=== PATIENT | female | born 1945 | race Caucasian/White ===

== ENCOUNTER 2018-03-14 20:14 | Inpatient (IN) ==
[2018-03-15] MEDS ORDERED: Ondansetron 4 MG/2 ML VIAL IVP PRN (02:01)
[2018-03-15] MEDS ORDERED: D5% in Water 1,000 ML IVC PRN (02:03)
[2018-03-15] MEDS ORDERED: *HR* OxyCODONE Immed Rel 5 MG TABLET PO PRN (02:03)
[2018-03-15] MEDS ORDERED: *HR* Dextrose 50 % in Water (Syg) 50 ML SYRINGE IVP PRN (02:03)
[2018-03-15] MEDS ORDERED: Dextrose Gel 15 GM/37.5 ML TUBE PO PRN ×2 (02:03)
[2018-03-15] MEDS: 0.9 % Sodium Chloride 1,000 ML IVC SCH ×2 (02:49→15:33)
[2018-03-15] MEDS: Piperacillin/Tazobactam 3.375 GM in 0.9 % Sodium Chloride Mini Bag 100 ML IVPB SCH ×4 (02:50→23:51)
[2018-03-15] MEDS: Insulin LISPRO 300 UNITS/3 ML VIAL SQ SCH ×3 (05:48→19:25)
[2018-03-15] MEDS ORDERED: *HR* Metoprolol 5 MG/5 ML VIAL IVP PRN (06:32)
[2018-03-15] MEDS ORDERED: Naloxone 0.4 MG/ML INJ IVP PRN (06:32)
[2018-03-15 07:17] LABS: Basophils % 0.2 %; Eosinophils # 0.1 K/mcL (0.0-0.6); Eosinophils % 1.4 %; Hematocrit 32.3 % (35.3-44.9); Hemoglobin 10.6 g/dL (11.5-15.4); Immature Granulocytes % 0.7 % (0-4); Lymphocytes # 2.5 K/mcL (0.6-4.6); Lymphocytes % 27.9 %; Mean Corpuscular HGB Conc 32.8 g/dL (31.6-35.5); Mean Corpuscular Hemoglobin 32.3 pg (28.0-33.3); Mean Corpuscular Volume 98.5 fL (83.0-100.0); Mean Platelet Volume 11.9 fL (9.4-12.4); Monocytes # 0.6 K/mcL (0.0-1.3); Monocytes % 6.7 %; Neutrophils # 5.6 K/mcL (1.6-8.9); Platelet Count 161 K/mcL (140-400); Red Blood Count 3.28 M/mcL (3.82-4.97); Red Cell Distribution Width 15.9 % (11.5-14.5); Segmented Neutrophils % 63.1 %
[2018-03-15] MEDS ORDERED: Piperacillin/Tazobactam 3.375 GM in 0.9 % Sodium Chloride Mini Bag 100 ML IVPB SCH (08:00)
--- NOTE | 2018-03-15 08:39 | General Surg History&Physical ---
<Dayton Albright - Last Filed: 03/15/18 09:45> Date of Encounter: 03/15/18 Time of Encounter: 08:00 Assessment and Plan (1) Appendicitis, acute Current Visit: Yes Status: Acute Assessment: Appendicitis. Patient presents with RLQ abdominal pain that increases with movement and pressure. Abdominal/Pelvic CT w/o contrast show inflammatory changes around appendix without perforation. Patient reports fever and night sweats since onset of RLQ abdominal pain. Appendectomy in afternoon 03/15. Patient consent obtained. NPO Zoffran prn for nausea IV piperacillin tazobactam IVF Oxycodone and naloxone PRN for pain The assessment and plan as outlined above was discussed with the patient and/or family members who expressed understanding and agreement. All questions were answered. Qualifiers: Qualified Code(s): K35.80 - Unspecified acute appendicitis (2) Diabetes Current Visit: Yes Status: Acute Patient normally on insulin gargine 100U. 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 Qualifiers: Arrhythmia type: unspecified cardiac arrhythmia Qualified Code(s): I49.9 - Cardiac arrhythmia, unspecified (4) Hypertension Current Visit: Yes Status: Acute Metoprolol PRN if severe acute hypertension 180/110 Qualifiers: Qualified Code(s): I10 - Essential (primary) hypertension History of Present Illness Chief complaint: Right lower quadrant abdominal pain since Wednesday HPI: Ms. Hernández is a 73 year old female presenting with lower quadrant abdominal pain , constipation, and nausea starting Wednesday. Increased with movement and pressure from wearing pants. Since Wednesday she has had fever and night sweats. She went to [facility] ER last night and was given ceftriaxone. CT abdomen and pelvis without contrast was done showing periappendiceal inflammation and lymph nodes consistent with acute appendicitis , [place] radiology agree with findings. She was transferred to [place] for appendectomy. Pain was rated a 10 out of 10 on admission and currently her pain is an 8 out of 10. Her last meal was yesterday afternoon. She has not had a bowel movement for several days. She has had a cholecystectomy. Past Med Surg Social Fam HX - Past Medical History Medical history: diabetes (unknown type), hyperlipidemia, hypertension, other ( cardiac arrthymia of unknown type, moribid obesity) Psychiatric history: no psych history - Past Surgical History Surgical History: breast surgery, cholecystectomy (unknown date), knee replacement (unknown date), sinus surgery, vascular surgery (cardiac cath unknown date) Additional surgical history: left foot surgery years ago - Social History Smoking Status: Current some day smoker (3-4 cigarretes per day for 10 years) Packs per day: less than half Smokeless Tobacco Status: No Alcohol use: none Drug use: none Occupational status: retired - Family History Sister Living Status: Hx Family Cancer: Yes Father Living Status: Cause of : Cardivascular or unknown type. Hx Family Cardiac Disorders: Yes Medications and Allergies Insulin Glargine,Hum.rec.anlog [Hong Joel U-100] 30 unit SQ DAILY [History] Tramadol HCl [Ultram] 50 mg PO TID PRN 03/15/18 [History] 3 Allergy/AdvReac Type Severity Reaction Status Date / Time aspirin AdvReac Vomiting Verified 03/15/18 09:06 ibuprofen [From Motrin] AdvReac Vomiting Verified 03/15/18 09:06 Review of Systems All systems PM: The remainder of the systems were reviewed and are negative - Constitutional as per HPI - Cardiovascular irregular heart rhythm - Gastrointestinal as per HPI - Genitourinary Genitourinary: urinary incontinence General Surgery Exam Initial Vital Signs Temp Pulse Resp BP Pulse Ox 98.1 F 58 16 119/69 96 03/15/18 01:11 03/15/18 01:11 03/15/18 01:11 03/15/18 01:11 03/15/18 01:11 - General physical appearance well developed, well nourished, no distress, moderate pain - Eyes normal ocular movement - Respiratory normal respiratory effort, clear to auscultation - Cardiovascular Cardiovascular exam: Present: RRR, regular rhythm, no murmurs/rubs/gallops - Abdomen Abdomen general surgery: Present: soft, non tender, guarding Abdominal Tenderness: Present: RUQ, RLQ (pain most pronounced in RLQ) - Neurologic Present: CN 2-12 grossly intact - Psychiatric Psychiatric general surgery: Present: A&Ox3, appropriate, oriented to place, speech is normal, memory intact Results - Labs 03/15/18 06:49 Abnormal lab results RBC 3.28 M/mcL (3.82-4.97) L 03/15/18 06:49 Hgb 10.6 g/dL (11.5-15.4) L 03/15/18 06:49 Hct 32.3 % (35.3-44.9) L 03/15/18 06:49 RDW 15.9 % (11.5-14.5) H 03/15/18 06:49 All other labs normal. <Kerry Campa - Last Filed: 03/15/18 16:59> Date of Encounter: 03/15/18 Assessment and Plan (1) Appendicitis, acute Current Visit: Yes Status: Acute The assessment and plan as outlined above was discussed with the patient and/or family members who expressed understanding and agreement. All questions were answered. discussed CT results with patient as well as PE findings, labs she has an acute appendicitis, unsure if distal tip findings are inflammatory or tumor in nature will plan laparoscopic appendectomy, possible open, possible cholangiograms, risks and benefits discussed and she wishes to proceed npo ivf hydration prn pain control Qualifiers: Acute appendicitis type: with localized peritonitis Qualified Code(s): K35.3 - Acute appendicitis with localized peritonitis (2) Diabetes Current Visit: Yes Status: Acute The assessment and plan as outlined above was discussed with the patient and/or family members who expressed understanding and agreement. All questions were answered. 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 All questions were answered. Qualifiers: Qualified Code(s): I10 - Essential (primary) hypertension History of Present Illness HPI: Ms. Hernández is a 73 year old female who two days ago started having RLQ pain which she describes as sharp and constant. Throughout the day the pain became worse and she presented to an OSH ED. The pain does not radiate. She has no diarrhea. No fever or chills. She has been having night sweats. Denies dysuria. She has urinary incontinence at baseline. She presented a CT scan abd/pelvis which showed appendicitis with 12 mm dilated appendix and 2.7 x 3.4 cm nodular density at the tip. Past Med Surg Social Fam HX - Past Medical History Source: patient Medical history: diabetes, hyperlipidemia, hypertension, other (cardiac arrthymia of unknown type, moribid obesity, overactive bladder) Review of Systems All systems PM: The remainder of the systems were reviewed and are negative General Surgery Exam Initial Vital Signs Temp Pulse Resp BP Pulse Ox 98.1 F 58 16 119/69 96 03/15/18 01:11 03/15/18 01:11 03/15/18 01:11 03/15/18 01:11 03/15/18 01:11 - General physical appearance well developed, well nourished, no distress, obese - Eyes PERRL, normal ocular movement - ENT normal mucosa, normocephalic - Neck trachea midline - Respiratory normal expansion, clear to auscultation - Cardiovascular Cardiovascular exam: Present: RRR, no murmurs/rubs/gallops - Abdomen Abdomen general surgery: Present: bowel sounds present, soft, tender. Absent: distended, guarding, rebound Abdominal Tenderness: Present: RLQ - Integumentary Integumentary general surgery: Present: warm and dry, no abnormal pigmentation - Neurologic Present: CN 2-12 grossly intact - Musculoskeletal Present: normal posture - Psychiatric Psychiatric general surgery: Present: A&Ox3, speech is normal Results - Labs 03/15/18 06:49 Abnormal lab results RBC 3.28 M/mcL (3.82-4.97) L 03/15/18 06:49 Hgb 10.6 g/dL (11.5-15.4) L 03/15/18 06:49 Hct 32.3 % (35.3-44.9) L 03/15/18 06:49 RDW 15.9 % (11.5-14.5) H 03/15/18 06:49 POC Glucose 118 mg/dL (70-99) H 07/10/18 11:17 All other labs normal. - Imaging CT scan - abdomen: report reviewed, image reviewed CT scan - pelvis: report reviewed, image reviewed - Attending Attestation I examined this patient and my medical decision-making was reviewed with the Resident Physician. I agree with the documented findings, disposition and treatment plan as described except to the extent set forth below.
[2018-03-15] MEDS ORDERED: Acetaminophen 325 MG TABLET PO PRN (14:34)
--- NOTE | 2018-03-15 16:59 | Anesthesia Evaluation PreOp ---
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: Denies Any Significant HX Other Medical History: Diabetes Type II Anesthesia History: No Prior Anesthetic Complications, Past Anesthesia (breast, adrian, knee replacement, L foot) Alcohol Use: none Drug use: none Medications and Allergies Insulin Glargine,Hum.rec.anlog [Basaglar Kwikpen U-100] 30 unit SQ DAILY [History] Tramadol HCl [Ultram] 50 mg PO TID PRN 03/15/18 [History] 3 Allergy/AdvReac Type Severity Reaction Status Date / Time aspirin AdvReac Vomiting Verified 03/15/18 09:06 ibuprofen [From Motrin] AdvReac Vomiting Verified 03/15/18 09:06 - Meds/Allergy Pre-op Review Medications Reviewed: Yes Allergies Reviewed: Yes Beta Blockers on Current Med List: Yes (prn) Anesthesia Results - Labs 03/15/18 06:49 Laboratory Tests 12/31/17 03/15/18 11:30 11:17 Sodium 134 L Potassium 4.2 Chloride 100 Carbon Dioxide 29 BUN 11 Creatinine 0.89 Glucose 234 H POC Glucose 118 H - Imaging EKG: pending Anesthesia Exam Vital Signs/O2 Sat, Most Current Temp Pulse Resp BP Pulse Ox 99.8 F H 58 15 106/65 95 03/15/18 14:32 03/15/18 14:32 03/15/18 14:32 03/15/18 14:32 03/15/18 14:32 Height: 1.7m Weight: 100kg NPO (# of Hours): >8 - HEENT Pupil (Motor): Pupils equal, EOMI Mallampati: II Oral Opening: Greater than 3 - DISPLAY AND BANNER DESIGNER LOC: Oriented DISPLAY AND BANNER DESIGNER Motor: Normal RUE, Normal LUE, Normal RLE, Normal LLE, Normal Face DISPLAY AND BANNER DESIGNER Sensory: Normal: RUE, LUE, RLE, LLE, Face - Cardiac Rhythm: Regular - Pulmonary Breath Sounds: bilateral Clear Anesthesia Assess/Plan ASA Score: 3 Modified Culver Scale for Level of Consciousness: Cooperative, oriented, and tranquil Anesthetic Plan: General Monitoring Plan: Standard Monitors Recovery Plan: PACU
[2018-03-15] MEDS ORDERED: *HR* Propofol 200 MG/20 ML VIAL IVP ONE (17:22)
[2018-03-15] MEDS ORDERED: Dexamethasone 4 MG/ML VIAL ONE (17:22)
[2018-03-15] MEDS ORDERED: *HR* Rocuronium Bromide 50 MG/5 ML VIAL ONE (17:22)
[2018-03-15] MEDS ORDERED: *HR* FentaNYL (PF) 100 MCG/2 ML VIAL ONE ×2 (17:22→18:15)
[2018-03-15] MEDS ORDERED: Lidocaine -MPF 2% 2 ML VIAL ONE (17:22)
[2018-03-15] MEDS ORDERED: Lidocaine -MPF 4% 5 ML AMPUL ONE (17:22)
[2018-03-15] MEDS ORDERED: *HR* Midazolam HCl 2 MG/2 ML VIAL ONE (17:22)
[2018-03-15] MEDS ORDERED: Ondansetron 4 MG/2 ML VIAL ONE (17:22)
[2018-03-15] MEDS ORDERED: Acetaminophen IV 1,000 MG/100 ML INFUS..BTL ONE (17:27)
[2018-03-15] MEDS ORDERED: *HR* Morphine 2 MG/ML SYRINGE IVP PRN (18:13)
[2018-03-15] MEDS ORDERED: Dexamethasone 4 MG/ML VIAL IVP ONE (18:13)
[2018-03-15] MEDS ORDERED: Ondansetron 4 MG/2 ML VIAL IVP ONE (18:13)
[2018-03-15] MEDS ORDERED: *HR* Labetalol 20 MG/4 ML SYRINGE IVP PRN (18:13)
[2018-03-15] MEDS ORDERED: *HR* Succinylcholine 200 MG/10 ML VIAL IVP ONE (18:15)
[2018-03-15] MEDS ORDERED: *HR* Morphine 10 MG/ML VIAL ONE (18:43)
[2018-03-15] MEDS ORDERED: Ketorolac 30 MG/ML VIAL ONE (18:54)
--- NOTE | 2018-03-15 19:26 | Operative Note ---
Date of procedure: 03/15/18 Pre-op diagnosis: acute appendicitis Post-op diagnosis: other (acute perforated appendicitis) Procedure: Laparoscopic converted to open appendectomy Complications: none immediate Anesthesia: GETA, local Local Anesthetics: 0.5% Sensorcaine HCL SubQ (cc) Surgeon: Kerry Campa Was there an nursing assistants teacher present: Yes Grounds Crew Supervisor: Alexandria Stewart Estimated blood loss (cc): 5 Specimen: appendix Condition: stable Disposition: PACU Procedure in Detail: Patient was brought into the operating suite and placed supine on the operating table. Sign in was performed and everyone was in agreement. Anesthesia was induced and patient was endotracheally intubated by anesthesia without incident. Garrett catheter was placed by circulating nurse. The abdomen was prepped and draped in the usual sterile fashion. Timeout was performed again everyone was in agreement. An incision through the skin to the subcutaneous tissue above the umbilicus was made with an 11 blade. Towel clamps are placed on either side of the fascia for retraction. A Veress needle was placed through this incision and a water drop test confirmed placement and the abdomen was insufflated. We enter the abdomen with a 5 mm 30 degree laparoscope on a 5 mm XL trocar. The area under entry was visualized and there was no apparent bowel injury and no bleeding. A suprapubic 5 mm port was placed under direct visualization after first incising the skin with an 11 blade. The laparoscope was placed this port and the supraumbilical port was exchanged for a 12 mm port. The last 5 mm port was placed in the left lateral abdominal wall under direct visualization after first incising the skin with an 11 blade. The patient was placed in reverse Trendelenburg left side down position. The cecum and terminal ileum were located. The appendix was located which was densely adherent to the right lateral sidewall and with gentle blunt dissection using the laparoscopic DeBakey the perforated appendicitis abscess cavity was entered and pus spilled within the right lower quadrant. This was suctioned from the abdomen and the area was irrigated with sterile saline. Mobilization of the appendix from the terminal ileum and the cecum was extremely difficult. The decision to open was made and all ports were removed from the abdomen. A midline incision through the skin and the subcutaneous tissue starting at the supraumbilical incision was made with a 15 blade. We dissected through the subcutaneous tissue to the anterior abdominal wall linea alba fascia with the Bovie. Kocur's were placed in either side of the fascia for retraction. The abdomen was entered with the Bovie. Again the terminal ileum and cecum was identified. The appendix was located and using gentle blunt dissection elevated off the peritoneum. The base of the appendix was located and using a hemostat dissection was carried out between the base of the appendix and the mesoappendix. Using the laparoscopic Flex ex ETS stapler using a white load the appendix was transected off the base of the cecum. Using the same stapler and again another white load the mesoappendix was ligated and transected. The abdomen was copiously irrigated with sterile saline. The staple lines were evaluated they were intact and there was no obvious bleeding. A 19-Anguillan Shaun drain was placed in the right lower quadrant along the lateral aspect of the cecum through the abdominal wall, which was secured to the abdominal wall with a 2-0 silk stitch. Kocur's are placed another side of the fascia for retraction. The fascia was closed with 2 separate #1 non-looped PDS running stitches. The subcutaneous tissue was copiously irrigated with sterile saline. The subcutaneous tissue was reapproximated 3-0 Vicryl interrupted stitches. The skin was closed with bj. Quarter inch iodoform packing was packed into an area of the midline wound. 4 x 4 gauze and Medipore tape were applied as a dressing. A drain sponge was placed at the Shaun drain site. The two 5 mm port sites were closed at the skin with 4-0 Monocryl interrupted subcuticular stitches. Steri-Strips are applied to this wound. All lap and instrument counts were correct at the end of the case. The patient tolerated the procedure well. She was taken to PACU in stable condition after being awoken by anesthesia and extubated in the OR.
--- NOTE | 2018-03-15 19:53 | Anesthesia Evaluation Post Op ---
Date of Encounter: 03/15/18 Time of Encounter: 19:50 - Vital Signs Vital Signs: vss - Lungs Lungs: Rhonchi - Airway Airway: Non-obstructed - Mental Status Mental Status: Asleep with brisk response to light stimulation - Pain Pain Scale used: Melton-Sakshi (Faces) (not awake) - Nausea Vomiting Nausea Vomiting: Not Present - Hydration Hydration: Ice chips - Discharge PostOp Status: Transfer Patient to floor
[2018-03-16] MEDS: Insulin LISPRO 300 UNITS/3 ML VIAL SQ SCH ×5 (01:24→20:33)
[2018-03-16 06:36] LABS: Basophils % 0.1 %; Hematocrit 34.7 % (35.3-44.9); Hemoglobin 11.4 g/dL (11.5-15.4); Immature Granulocytes % 0.9 % (0-4); Lymphocytes % 10.1 %; Mean Corpuscular HGB Conc 32.9 g/dL (31.6-35.5); Mean Corpuscular Hemoglobin 32.4 pg (28.0-33.3); Mean Corpuscular Volume 98.6 fL (83.0-100.0); Mean Platelet Volume 11.9 fL (9.4-12.4); Monocytes # 0.3 K/mcL (0.0-1.3); Monocytes % 3.1 %; Neutrophils # 8.6 K/mcL (1.6-8.9); Platelet Count 182 K/mcL (140-400); Red Blood Count 3.52 M/mcL (3.82-4.97); Red Cell Distribution Width 16.1 % (11.5-14.5); Segmented Neutrophils % 85.8 %
[2018-03-16] MEDS: 0.9 % Sodium Chloride 1,000 ML IVC SCH ×2 (07:00→13:49)
[2018-03-16 07:03] LABS: BUN/Creatinine Ratio 18 (6-26); Blood Urea Nitrogen 16 mg/dL (8-23); Calcium 8.3 mg/dL (8.6-10.3); Carbon Dioxide 22 mEq/L (23-29); Chloride 106 mEq/L (98-107); Glucose 189 mg/dL (70-105); Osmolality,Calculated 290 (280-300); Potassium 4.4 mEq/L (3.5-5.1); Sodium 137 mEq/L (136-145); eGFR For African Americans > 60 (> 60); eGFR For Non-African Americans > 60 (> 60)
[2018-03-16] MEDS ORDERED: Dextrose Gel 15 GM/37.5 ML TUBE PO PRN ×2 (07:21)
[2018-03-16] MEDS ORDERED: *HR* Dextrose 50 % in Water (Syg) 50 ML SYRINGE IVP PRN (07:21)
[2018-03-16] MEDS ORDERED: *HR* Metoprolol 5 MG/5 ML VIAL IVP PRN (07:21)
[2018-03-16] MEDS ORDERED: Ondansetron 4 MG/2 ML VIAL IVP PRN (07:21)
[2018-03-16] MEDS ORDERED: OXYCODONE Oral CONC 10 MG/0.5 ML ORAL.SYG SL PRN (07:21)
[2018-03-16] MEDS ORDERED: D5% in Water 1,000 ML IVC PRN (07:21)
[2018-03-16] MEDS ORDERED: Acetaminophen IV 1,000 MG/100 ML INFUS..BTL IVPB SCH (07:21)
[2018-03-16] MEDS ORDERED: *HR* OxyCODONE Immed Rel 5 MG TABLET PO PRN (08:00)
--- NOTE | 2018-03-16 08:37 | General Surgery Progress Note ---
Addendum entered and electronically signed by Dayton Albright 03/16/18 10:18: Plan: appendicitis: Patient is stable: Tolerating liquid diet advance to diabetic diet Order PT/PT IV ABX, continue EVELIA drain Continue pain control Encourage ambulation and positive spirometry Continue monitoring Order CBC and BMP follow up in the morning Original Note: <Dayton Albright - Last Filed: 03/16/18 08:41> Date of Encounter: 03/16/18 Time of Encounter: 08:30 - Assessment and Plan (1) Appendicitis, acute Status: Acute Qualifiers: Acute appendicitis type: with localized peritonitis Qualified Code(s): K35.3 - Acute appendicitis with localized peritonitis (2) Diabetes Status: Acute Qualifiers: Diabetes mellitus type: other specified (including LORI) Diabetes mellitus continuous churn buttermaker insulin use: unspecified longterm insulin use status Diabetes mellitus complication status: with other specified complication Qualified Code (s): E13.69 - Other specified diabetes mellitus with other specified complication (3) Hypertension Status: Acute Qualifiers: Qualified Code(s): I10 - Essential (primary) hypertension (4) Arrhythmia Status: Acute Qualifiers: Arrhythmia type: unspecified cardiac arrhythmia Qualified Code(s): I49.9 - Cardiac arrhythmia, unspecified Subjective Patient reports: no new complaints, feels better, pain is less, flatus, no bowel movement Narrative: Patient is feeling better after surgery and reports no acute distress. She states that her pain has decreased from 10 yesterday to a 3 out of 10 today. She says that she does not require any additional pain medications. She states that she is passing gas but has not had a bowel movement yet. There is moderate output from drain which is sanguinous. Patient tolerating liquid diet well. Objective Vital Signs - Last 8 Hours Temp Pulse Resp BP Pulse Ox 03/16/18 04:03 97.6 F 55 16 118/66 95 Intake and Output 03/15/18 03/16/18 03/16/18 23:59 07:59 15:59 Intake Total 0 / 0 Output Total 220 / 220 345 / 345 Balance -220 / -220 -345 / -345 Intake: Oral 0 / 0 Output: Estimated Blood Loss 5 / 5 Urine Amount (Catheter) 75 / 75 Catheter 300 / 300 Wound Drainage 140 / 140 45 / 45 Right Lower Abdomen 100 / 100 45 / 45 Other: Meal NPO # Bowel Movements 0 Blood Glucose* 103 183 - General physical appearance well developed, well nourished, no distress - Respiratory normal expansion, normal respiratory effort - Cardiovascular Cardiovascular exam: Present: RRR, regular rhythm, no murmurs/rubs/gallops - Abdomen Abdomen: Present: soft Abdominal Tenderness: diffusely - Neurologic CN 2-12 grossly intact - Psychiatric oriented to time, oriented to person, oriented to place, speech is normal - Labs 03/16/18 05:50 03/16/18 05:50 Diabetes panel 03/16/18 Range/Units 05:50 Sodium 137 (136-145) mEq/L Potassium 4.4 (3.5-5.1) mEq/L Chloride 106 (98-107) mEq/L Carbon Dioxide 22 L (23-29) mEq/L BUN 16 (8-23) mg/dL Creatinine 0.87 (0.60-1.20) mg/dL Glucose 189 H (70-105) mg/dL Calcium 8.3 L (8.6-10.3) mg/dL Calcium panel 03/16/18 Range/Units 05:50 Calcium 8.3 L (8.6-10.3) mg/dL Pituitary panel 03/16/18 Range/Units 05:50 Sodium 137 (136-145) mEq/L Potassium 4.4 (3.5-5.1) mEq/L Chloride 106 (98-107) mEq/L Carbon Dioxide 22 L (23-29) mEq/L BUN 16 (8-23) mg/dL Creatinine 0.87 (0.60-1.20) mg/dL Glucose 189 H (70-105) mg/dL Calcium 8.3 L (8.6-10.3) mg/dL Adrenal panel 03/16/18 Range/Units 05:50 Sodium 137 (136-145) mEq/L Potassium 4.4 (3.5-5.1) mEq/L Chloride 106 (98-107) mEq/L Carbon Dioxide 22 L (23-29) mEq/L BUN 16 (8-23) mg/dL Creatinine 0.87 (0.60-1.20) mg/dL Glucose 189 H (70-105) mg/dL Calcium 8.3 L (8.6-10.3) mg/dL - VTE Documentation of Mechanical Device: Intermittent pneumatic compression device Consult Discharge Plan - Plan Instructions: Celestino-Fair Drain Care (DC), Open Appendectomy (DC) Additional Instructions: General Surgical Discharge Instructions 1. No pushing, pulling, or lifting greater than 15 lbs for 2-4 weeks (depending upon procedure). 2. You may shower beginning today, but no tub baths, soaking, or swimming for 2 weeks. 3. You may resume driving when you are off narcotics and are safe to react in a car. 4. Take ibuprofen every 8 hours for discomfort. If this does not relieve discomfort, you may take the as needed [place]. Take narcotics as directed. Do not take more narcotics then directed and do not share your narcotics with any other person. Do not drink alcohol while on narcotics. DO NOT TAKE TRAMADOL OR OTHER NARCOTICS WHILE TAKING [place]. 5. Take stool softeners (Colace) everyday while taking narcotics. Take Miralax once or twice daily until you have bowel movements daily, then stop. You may hold for loose stools. 6. Report any fevers greater than 100.5F, increase abdominal discomfort, drainage that looks like pus, increased redness or pain at the surgical site, or any vomiting. 7. Report any pain in the calves, shortness of breath, or rapid heartbeat. 8. Follow-up in the office as directed. 9. If you were prescribed antibiotics, do not stop them without talking to your provider. Daily EVELIA Drain Care: 1. Remove dressings. Shower with antibacterial soap. 2. Do not let the EVELIA drain dangle from your body. Use the safety pin to secure to your clothing. Secure the EVELIA to a lanyard or other type of long necklace when you shower. 3. Replace drain gauze and taped to secure. 4. Record the output from your EVELIA bulb (at least once daily) on the form provided and bring this with you to your follow-up appointment. 5. Keep the EVELIA drain to suction (sqeeze the bulb and replace the cap while squeezing). 6. Strip the lines twice daily (hold onto the line as close to the body as you can, then with the other hand push the contents of the line into the EVELIA bulb). Referrals: Christelle Orlando CNP [Advanced Practice Nurse] - 03/24/18 9:30 am Travis Sanchez MD [Non-Partnered Physician] - <Kerry Campa - Last Filed: 03/18/18 16:10> Date of Encounter: 03/16/18 - Assessment and Plan (1) Appendicitis, acute Status: Acute continue abx advance diet as tolerate prn pain control gi/dvt prophylaxis ok home meds OOB to chair/ambulate/PT/OT patient doing well Qualifiers: Acute appendicitis type: with localized peritonitis Qualified Code(s): K35.3 - Acute appendicitis with localized peritonitis (2) Diabetes Status: Acute Qualifiers: Diabetes mellitus type: other specified (including LORI) Diabetes mellitus longterm insulin use: unspecified longterm insulin use status Diabetes mellitus complication status: with other specified complication Qualified Code (s): E13.69 - Other specified diabetes mellitus with other specified complication (3) Hypertension Status: Acute Qualifiers: Hypertension type: unspecified Qualified Code(s): I10 - Essential (primary ) hypertension Subjective Patient reports: feels better, pain is less, flatus, no bowel movement Objective Vital Signs - Last 8 Hours Temp Pulse Resp BP Pulse Ox 03/18/18 12:01 97.7 F 45 15 142/66 95 Intake and Output 03/18/18 03/18/18 03/18/18 07:59 15:59 23:59 Intake Total 100 / 100 720 / 720 Output Total 40 / 40 700 / 700 Balance 60 / 60 20 / 20 Intake: IV Fluids 100 / 100 Zosyn 3.375 GM In 0.9 % Sodium 100 / 100 Chloride (Mini-Bag +) 100 ML @ 25 mls/hr IVPB Q8HR REPLACED BY [facility] Rx#: [id number] Oral 720 / 720 Output: Urine 0 / 0 650 / 650 Wound Drainage 40 / 40 50 / 50 Right Lower Abdomen 40 / 40 50 / 50 Other: Meal Lunch Percent of Meal Consumed 25% # Bowel Movements 0 Weight 105.9 kg Blood Glucose* 191 214 Patient Weight 03/18/18 23:59 Weight 105.9 kg - General physical appearance well developed, well nourished - Eyes PERRL, normal ocular movement - ENT normal mucosa, normocephalic - Respiratory normal expansion, normal respiratory effort - Cardiovascular Cardiovascular exam: Present: RRR - Abdomen Abdomen: Present: soft, tender (expected post op tenderness) - Incision Incision: Present: clean and dry, open (packed) - Integumentary no rash, no growths - Neurologic CN 2-12 grossly intact - Musculoskeletal normal posture - Psychiatric oriented to time, oriented to person, speech is normal - Labs 03/17/18 06:13 03/17/18 06:13
[2018-03-16] MEDS: Acetaminophen IV 1,000 MG/100 ML INFUS..BTL IVPB SCH ×3 (08:45→23:36)
[2018-03-16] MEDS: Piperacillin/Tazobactam 3.375 GM in 0.9 % Sodium Chloride Mini Bag 100 ML IVPB SCH ×2 (08:48→17:33)
[2018-03-16 11:39] LABS: Alanine Aminotransferase 14 Units/L (7-52); Albumin 2.8 g/dL (3.5-5.7); Albumin/Globulin Ratio 1.1 (1.1-2.2); Alkaline Phosphatase 88 Units/L (34-104); Aspartate Amino Transferase 11 Units/L (13-39); BUN/Creatinine Ratio 19 (6-26); Bilirubin,Total 0.5 mg/dL (0.3-1.0); Blood Urea Nitrogen 17 mg/dL (8-23); Calcium 8.2 mg/dL (8.6-10.3); Carbon Dioxide 23 mEq/L (23-29); Chloride 103 mEq/L (98-107); Globulin 2.6 g/dL (2.4-3.5); Glucose 264 mg/dL (70-105); Osmolality,Calculated 289 (280-300); Potassium 4.3 mEq/L (3.5-5.1); Sodium 134 mEq/L (136-145); Total Protein 5.4 g/dL (6.4-8.9); eGFR For African Americans > 60 (> 60); eGFR For Non-African Americans > 60 (> 60)
[2018-03-16] MEDS ORDERED: Insulin LISPRO 300 UNITS/3 ML VIAL SQ SCH ×2 (12:00→21:00)
[2018-03-16] MEDS: Melatonin 3 MG TABLET PO PRN (22:15)
[2018-03-17] MEDS: 0.9 % Sodium Chloride 1,000 ML IVC SCH (00:03)
[2018-03-17] MEDS: Piperacillin/Tazobactam 3.375 GM in 0.9 % Sodium Chloride Mini Bag 100 ML IVPB SCH ×4 (00:04→23:14)
[2018-03-17 06:27] LABS: Basophils % 0.2 %; Eosinophils % 0.2 %; Hematocrit 30.7 % (35.3-44.9); Immature Granulocytes % 0.7 % (0-4); Lymphocytes # 2.6 K/mcL (0.6-4.6); Lymphocytes % 26.8 %; Mean Corpuscular HGB Conc 31.9 g/dL (31.6-35.5); Mean Corpuscular Volume 97.2 fL (83.0-100.0); Mean Platelet Volume 11.7 fL (9.4-12.4); Monocytes # 0.5 K/mcL (0.0-1.3); Monocytes % 5.1 %; Neutrophils # 6.5 K/mcL (1.6-8.9); Platelet Count 190 K/mcL (140-400); Red Blood Count 3.16 M/mcL (3.82-4.97); Red Cell Distribution Width 16.1 % (11.5-14.5)
[2018-03-17 06:28] LABS: Hemoglobin 9.8 g/dL (11.5-15.4)
--- NOTE | 2018-03-17 06:39 | Electrocardiograph Report ---
[address] [address] Test Date: 2018-03-15 Pat Name: Indiana Hernández Department: 115 Room: 3A32 Gender: F Tube Buffer: : 1945 Requested By: Kerry Cmapa Order Number: [id number] Reading MD: Robby Silva Measurements Intervals [place] Rate: 56 P: 12 GA: 182 QRS: -11 QRSD: 85 T: 33 QT: 416 QTc: 407 Interpretive Statements SINUS BRADYCARDIA Electronically Signed On 03-17-2018 6:38:18 EDT by Robby Silva
--- NOTE | 2018-03-17 06:46 | Electrocardiograph Report ---
[address] [address] Test Date: 2018-03-15 Pat Name: Indiana Hernández Department: 106 Room: 3A32 Gender: F Pharmaceutical Analyst: : 1945 Requested By: Dayton Albright Order Number: [id number] Reading MD: Robby Silva Measurements Intervals [place] Rate: 63 P: 21 OR: 194 QRS: 11 QRSD: 96 T: 60 QT: 395 QTc: 402 Interpretive Statements SINUS RHYTHM LOW QRS VOLTAGE IN PRECORDIAL LEADS Electronically Signed On 03-17-2018 6:44:42 EDT by Robby Silva
[2018-03-17 06:49] LABS: BUN/Creatinine Ratio 15 (6-26); Blood Urea Nitrogen 13 mg/dL (8-23); Calcium 8.3 mg/dL (8.6-10.3); Carbon Dioxide 25 mEq/L (23-29); Chloride 106 mEq/L (98-107); Glucose 238 mg/dL (70-105); Osmolality,Calculated 290 (280-300); Potassium 4.1 mEq/L (3.5-5.1); Sodium 136 mEq/L (136-145); eGFR For African Americans > 60 (> 60); eGFR For Non-African Americans > 60 (> 60)
[2018-03-17] MEDS: Acetaminophen IV 1,000 MG/100 ML INFUS..BTL IVPB SCH ×3 (08:23→22:26)
[2018-03-17] MEDS: Insulin LISPRO 300 UNITS/3 ML VIAL SQ SCH ×4 (08:27→20:09)
--- NOTE | 2018-03-17 08:45 | General Surgery Progress Note ---
<Dayton Albright - Last Filed: 03/18/18 07:48> Date of Encounter: 03/18/18 Time of Encounter: 08:00 - Assessment and Plan (1) Appendicitis, acute Current Visit: Yes Status: Acute - discontinue IV fluids - Encourage ambulation and inspirative spirometry - remove catheter and allow patient to use adult diapers - continue monitoring patient - PT/OT consulted, will see her 1 more time for ambulatory safety, does not need to see her at d/c. Abdominal Distension/Gas/Constipation - Continue diabetic diet, but allow patient to choose what she can tolerate - Colase 100mg BID - Simethicone 40 mg Qualifiers: Acute appendicitis type: with localized peritonitis Qualified Code(s): K35.3 - Acute appendicitis with localized peritonitis (2) Diabetes Current Visit: Yes Status: Acute Diabetic diet Sliding scale protocol Qualifiers: Diabetes mellitus type: other specified (including LORI) Diabetes mellitus termite control technician insulin use: unspecified termite control technician insulin use status Diabetes mellitus complication status: with other specified complication Qualified Code (s): E13.69 - Other specified diabetes mellitus with other specified complication (3) Hypertension Current Visit: Yes Status: Acute Metoprolol PRN Qualifiers: Qualified Code(s): I10 - Essential (primary) hypertension Subjective Patient reports: tolerating a regular diet, flatus, no bowel movement Narrative: 73 year old female s/p open appendectomy on 03/15/18. Reports increased abdominal pain due to gas pressure. She tolerated full diet last night, however experienced gas after which is causing her great discomfort. Reports abdominal pain is an 8/10 from a 5/10 yesterday. Abdominal pain is located in the RUQ and RLQ. She does not want opiods for pain.. She would like to step down to liquid diet and have "Gas-X" to relieve abdominal distension. She also would like to have the catheter removed and use adult diapers. Last night had an episode of difficulty breathing and was given oxygen. Objective Vital Signs - Last 8 Hours Temp Pulse Resp BP Pulse Ox 03/17/18 06:36 98.9 F 50 18 137/77 97 03/17/18 04:13 97.6 F 47 14 120/57 97 Intake and Output 03/16/18 03/17/18 03/17/18 23:59 07:59 15:59 Intake Total 1300 / 1300 300 / 300 Output Total 530 / 530 1010 / 1010 Balance 770 / 770 -710 / -710 Intake: IV Fluids 1300 / 1300 100 / 100 0.9 % Sodium Chloride 1,000 ML 1000 / 1000 @ 100 mls/hr IVC .Q10H [facility] Rx#: [id number] Ofirmev 1,000 mg/100 ml 1,000 200 / 200 mg In 100 ml @ 400 mls/hr IVPB Q8HR [facility] Rx#:[id number] Zosyn 3.375 GM In 0.9 % Sodium 100 / 100 100 / 100 Chloride (Mini-Bag +) 100 ML @ 25 mls/hr IVPB Q8HR [facility] Rx#: [id number] Oral 0 / 0 200 / 200 Output: Catheter 450 / 450 1000 / 1000 Wound Drainage 80 / 80 10 / 10 Right Lower Abdomen 80 / 80 10 / 10 Other: Weight 102.5 kg Blood Glucose* 355 225 Patient Weight 03/17/18 23:59 Weight 102.5 kg - General physical appearance well developed, well nourished, moderate distress - Respiratory normal respiratory effort, clear to percussion - Cardiovascular Cardiovascular exam: Present: RRR, no murmurs/rubs/gallops - Abdomen Abdomen: Present: soft, distended Abdominal Tenderness: RUQ, RLQ - Psychiatric oriented to time, oriented to person, oriented to place, speech is normal - Labs 03/17/18 06:13 03/17/18 06:13 Diabetes panel 03/16/18 03/17/18 Range/Units 10:54 06:13 Sodium 134 L 136 (136-145) mEq/L Potassium 4.3 4.1 (3.5-5.1) mEq/L Chloride 103 106 (98-107) mEq/L Carbon Dioxide 23 25 (23-29) mEq/L BUN 17 13 (8-23) mg/dL Creatinine 0.88 0.89 (0.60-1.20) mg/dL Glucose 264 H 238 H (70-105) mg/dL Calcium 8.2 L 8.3 L (8.6-10.3) mg/dL AST 11 L (13-39) Units/L ALT 14 (7-52) Units/L Alkaline Phosphatase 88 (34-104) Units/L Albumin 2.8 L (3.5-5.7) g/dL Calcium panel 03/16/18 03/17/18 Range/Units 10:54 06:13 Calcium 8.2 L 8.3 L (8.6-10.3) mg/dL Albumin 2.8 L (3.5-5.7) g/dL Pituitary panel 03/16/18 03/17/18 Range/Units 10:54 06:13 Sodium 134 L 136 (136-145) mEq/L Potassium 4.3 4.1 (3.5-5.1) mEq/L Chloride 103 106 (98-107) mEq/L Carbon Dioxide 23 25 (23-29) mEq/L BUN 17 13 (8-23) mg/dL Creatinine 0.88 0.89 (0.60-1.20) mg/dL Glucose 264 H 238 H (70-105) mg/dL Calcium 8.2 L 8.3 L (8.6-10.3) mg/dL Adrenal panel 03/16/18 03/17/18 Range/Units 10:54 06:13 Sodium 134 L 136 (136-145) mEq/L Potassium 4.3 4.1 (3.5-5.1) mEq/L Chloride 103 106 (98-107) mEq/L Carbon Dioxide 23 25 (23-29) mEq/L BUN 17 13 (8-23) mg/dL Creatinine 0.88 0.89 (0.60-1.20) mg/dL Glucose 264 H 238 H (70-105) mg/dL Calcium 8.2 L 8.3 L (8.6-10.3) mg/dL Total Bilirubin 0.5 (0.3-1.0) mg/dL AST 11 L (13-39) Units/L ALT 14 (7-52) Units/L Alkaline Phosphatase 88 (34-104) Units/L Albumin 2.8 L (3.5-5.7) g/dL - VTE Documentation of Mechanical Device: Intermittent pneumatic compression device Consult Discharge Plan - Plan Referrals: Christelle Orlando CNP [Advanced Practice Nurse] - 03/24/18 9:30 am Travis Sanchez MD [Non-Partnered Physician] - <Kerry Campa - Last Filed: 03/18/18 12:37> Date of Encounter: 03/17/18 Time of Encounter: 20:00 - Assessment and Plan (1) Appendicitis, acute Current Visit: Yes Status: Acute s/p lap converted to open appendectomy for acute perforated appendicitis continue abx patient only doing tylenol iv for pain control continue pt/ot continue diet as patient tolerates OOB,ambulate EVELIA drain serous patient doing well Qualifiers: Acute appendicitis type: with localized peritonitis Qualified Code(s): K35.3 - Acute appendicitis with localized peritonitis (2) Diabetes Current Visit: Yes Status: Acute continue home meds MBS/ssi Qualifiers: Diabetes mellitus type: other specified (including LORI) Diabetes mellitus termite control technician insulin use: unspecified termite control technician insulin use status Diabetes mellitus complication status: with other specified complication Qualified Code (s): E13.69 - Other specified diabetes mellitus with other specified complication (3) Hypertension Current Visit: Yes Status: Acute Qualifiers: Hypertension type: unspecified Qualified Code(s): I10 - Essential (primary ) hypertension Subjective Patient reports: no new complaints, still having pain, pain is less, tolerating a regular diet (soft diet), flatus, no bowel movement, afebrile Objective Vital Signs - Last 8 Hours Temp Pulse Resp BP Pulse Ox 03/18/18 12:01 97.7 F 45 15 142/66 95 03/18/18 07:49 98.4 F 47 16 136/53 94 Intake and Output 03/17/18 03/18/18 03/18/18 23:59 07:59 15:59 Intake Total 320 / 320 100 / 100 480 / 480 Output Total 270 / 270 40 / 40 600 / 600 Balance 50 / 50 60 / 60 -120 / -120 Intake: IV Fluids 200 / 200 100 / 100 Ofirmev 1,000 mg/100 ml 1,000 100 / 100 mg In 100 ml @ 400 mls/hr IVPB Q8HR [facility] Rx#:[id number] Zosyn 3.375 GM In 0.9 % Sodium 100 / 100 100 / 100 Chloride (Mini-Bag +) 100 ML @ 25 mls/hr IVPB Q8HR [facility] Rx#: [id number] Oral 120 / 120 480 / 480 Output: Urine 200 / 200 0 / 0 550 / 550 Wound Drainage 70 / 70 40 / 40 50 / 50 Right Lower Abdomen 70 / 70 40 / 40 50 / 50 Other: Meal Dinner Breakfast Percent of Meal Consumed 70% # Bowel Movements 0 Weight 105.9 kg Blood Glucose* 198 191 214 Patient Weight 03/18/18 23:59 Weight 105.9 kg - General physical appearance well developed, well nourished, no distress - Eyes PERRL, normal ocular movement - ENT normal mucosa - Respiratory normal expansion, normal respiratory effort - Cardiovascular Cardiovascular exam: Present: RRR - Abdomen Abdomen: Present: bowel sounds present, soft, tender (expected post op tenderness). Absent: distended - Incision Incision: Present: clean and dry, intact (packed with serous drainage) - Integumentary no growths - Neurologic CN 2-12 grossly intact - Musculoskeletal normal posture - Psychiatric oriented to time, oriented to person, oriented to place, speech is normal, memory intact - Labs 03/17/18 06:13 03/17/18 06:13 - Attending Attestation I examined this patient and my medical decision-making was reviewed with the Resident Physician. I agree with the documented findings, disposition and treatment plan as described except to the extent set forth below.
[2018-03-17] MEDS: Melatonin 3 MG TABLET PO PRN (22:14)
[2018-03-18] MEDS: Piperacillin/Tazobactam 3.375 GM in 0.9 % Sodium Chloride Mini Bag 100 ML IVPB SCH (08:32)
[2018-03-18] MEDS: Acetaminophen IV 1,000 MG/100 ML INFUS..BTL IVPB SCH (08:33)
[2018-03-18] MEDS: Insulin LISPRO 300 UNITS/3 ML VIAL SQ SCH ×2 (08:34→12:06)
--- NOTE | 2018-03-18 08:49 | General Surgery Progress Note ---
<Dayton Albright - Last Filed: 03/18/18 12:22> Date of Encounter: 03/18/18 Time of Encounter: 07:00 - Assessment and Plan (1) Appendicitis, acute Status: Acute - Encourage ambulation and inspirative spirometry - continue diabetic diet and see if she can tolerate - continue monitoring patient for return of bowel function - For pain continue oxy orders PRN. - PT/OT consulted, will see her 1 more time for ambulatory safety, does not need to see her at d/c. 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 She is in acute distress. Reports having not slept well for 2 days due to pain. Initially patient did not want to take opiod pain meds, and now would like to if it helps her sleep. Reports pain is an 8/10. Reports not tolerating her diabetic diet. Will try again in AM. Has not has a bowel movement yet but is passing gas. Objective Vital Signs - Last 8 Hours Temp Pulse Resp BP Pulse Ox 03/18/18 07:49 98.4 F 47 16 136/53 94 03/18/18 03:35 98.2 F 51 16 164/73 94 Intake and Output 03/17/18 03/18/18 03/18/18 23:59 07:59 15:59 Intake Total 320 / 320 100 / 100 Output Total 270 / 270 40 / 40 Balance 50 / 50 60 / 60 Intake: IV Fluids 200 / 200 100 / 100 Ofirmev 1,000 mg/100 ml 1,000 100 / 100 mg In 100 ml @ 400 mls/hr IVPB Q8HR [facility] Rx#:[id number] Zosyn 3.375 GM In 0.9 % Sodium 100 / 100 100 / 100 Chloride (Mini-Bag +) 100 ML @ 25 mls/hr IVPB Q8HR [facility] Rx#: [id number] Oral 120 / 120 Output: Urine 200 / 200 0 / 0 Wound Drainage 70 / 70 40 / 40 Right Lower Abdomen 70 / 70 40 / 40 Other: Meal Dinner # Bowel Movements 0 Weight 105.9 kg Blood Glucose* 198 191 Patient Weight 03/18/18 23:59 Weight 105.9 kg - General physical appearance well developed - Respiratory normal expansion, normal respiratory effort - Cardiovascular Cardiovascular exam: Present: RRR, NR - Abdomen Abdomen: Present: bowel sounds present, soft Abdominal Tenderness: RUQ, LUQ Additional Comments: flank - Psychiatric oriented to time, oriented to person, oriented to place, speech is normal, memory intact - Labs 03/17/18 06:13 03/17/18 06:13 - VTE Documentation of Mechanical Device: Intermittent pneumatic compression device Consult Discharge Plan - Plan Instructions: Celestino-Fair Drain Care (DC), Open Appendectomy (DC) Additional Instructions: General Surgical Discharge Instructions 1. No pushing, pulling, or lifting greater than 15 lbs for 2-4 weeks (depending upon procedure). 2. You may shower beginning today, but no tub baths, soaking, or swimming for 2 weeks. 3. You may resume driving when you are off narcotics and are safe to react in a car. 4. Take ibuprofen every 8 hours for discomfort. If this does not relieve discomfort, you may take the as needed [place]. Take narcotics as directed. Do not take more narcotics then directed and do not share your narcotics with any other person. Do not drink alcohol while on narcotics. DO NOT TAKE TRAMADOL OR OTHER NARCOTICS WHILE TAKING NORCO. 5. Take stool softeners (Colace) everyday while taking narcotics. Take Miralax once or twice daily until you have bowel movements daily, then stop. You may hold for loose stools. 6. Report any fevers greater than 100.5F, increase abdominal discomfort, drainage that looks like pus, increased redness or pain at the surgical site, or any vomiting. 7. Report any pain in the calves, shortness of breath, or rapid heartbeat. 8. Follow-up in the office as directed. 9. If you were prescribed antibiotics, do not stop them without talking to your provider. Daily EVELIA Drain Care: 1. Remove dressings. Shower with antibacterial soap. 2. Do not let the EVELIA drain dangle from your body. Use the safety pin to secure to your clothing. Secure the EVELIA to a lanyard or other type of long necklace when you shower. 3. Replace drain gauze and taped to secure. 4. Record the output from your EVELIA bulb (at least once daily) on the form provided and bring this with you to your follow-up appointment. 5. Keep the EVELIA drain to suction (sqeeze the bulb and replace the cap while squeezing). 6. Strip the lines twice daily (hold onto the line as close to the body as you can, then with the other hand push the contents of the line into the EVELIA bulb). Referrals: Christelle Orlando CNP [Advanced Practice Nurse] - 03/24/18 9:30 am Travis Sanchez MD [Non-Partnered Physician] - <Kerry Campa - Last Filed: 03/18/18 16:09> Date of Encounter: 03/18/18 - Assessment and Plan (1) Appendicitis, acute Status: Acute Qualifiers: Acute appendicitis type: with localized peritonitis Qualified Code(s): K35.3 - Acute appendicitis with localized peritonitis (2) Diabetes Status: Acute Qualifiers: Diabetes mellitus type: other specified (including LORI) Diabetes mellitus usp insulin use: unspecified usp insulin use status Diabetes mellitus complication status: with other specified complication Qualified Code (s): E13.69 - Other specified diabetes mellitus with other specified complication (3) Hypertension Status: Acute Qualifiers: Hypertension type: unspecified Qualified Code(s): I10 - Essential (primary ) hypertension Objective Vital Signs - Last 8 Hours Temp Pulse Resp BP Pulse Ox 03/18/18 12:01 97.7 F 45 15 142/66 95 Intake and Output 03/18/18 03/18/18 03/18/18 07:59 15:59 23:59 Intake Total 100 / 100 720 / 720 Output Total 40 / 40 700 / 700 Balance 60 / 60 20 / 20 Intake: IV Fluids 100 / 100 Zosyn 3.375 GM In 0.9 % Sodium 100 / 100 Chloride (Mini-Bag +) 100 ML @ 25 mls/hr IVPB Q8HR [facility] Rx#: [id number] Oral 720 / 720 Output: Urine 0 / 0 650 / 650 Wound Drainage 40 / 40 50 / 50 Right Lower Abdomen 40 / 40 50 / 50 Other: Meal Lunch Percent of Meal Consumed 25% # Bowel Movements 0 Weight 105.9 kg Blood Glucose* 191 214 Patient Weight 03/18/18 23:59 Weight 105.9 kg - Labs 03/17/18 06:13 03/17/18 06:13 - Attending Attestation AIR BAG STRIPPER saw patient and discharged patient
[2018-03-18 12:03] VITALS: BP 142/66
[2018-03-18] MEDS ORDERED: Acetaminophen 325 MG TABLET PO PRN (12:38)
--- NOTE | 2018-03-18 12:59 | Discharge Summary ---
Date of Encounter: 03/18/18 Time of Encounter: 13:07 - Discharge Diagnosis (1) Appendicitis, acute Priority: Primary Status: Acute Qualifiers: Acute appendicitis type: with localized peritonitis Qualified Code(s): K35.3 - Acute appendicitis with localized peritonitis (2) Diabetes Priority: Secondary Status: Acute Qualifiers: Diabetes mellitus type: other specified (including LORI) Diabetes mellitus superintendent terminal insulin use: unspecified residential insulin use status Diabetes mellitus complication status: with other specified complication Qualified Code (s): E13.69 - Other specified diabetes mellitus with other specified complication (3) Arrhythmia Priority: Secondary Status: Acute Qualifiers: Arrhythmia type: unspecified cardiac arrhythmia Qualified Code(s): I49.9 - Cardiac arrhythmia, unspecified (4) Hypertension Priority: Secondary Status: Acute Qualifiers: Hypertension type: unspecified Qualified Code(s): I10 - Essential (primary ) hypertension General Surgery Exam Initial Vital Signs Temp Pulse Resp BP Pulse Ox 98.1 F 58 16 119/69 96 03/15/18 01:11 03/15/18 01:11 03/15/18 01:11 03/15/18 01:11 03/15/18 01:11 Vital Signs Temp Pulse Resp BP Pulse Ox 03/18/18 12:01 97.7 F 45 15 142/66 95 03/18/18 07:49 98.4 F 47 16 136/53 94 03/18/18 03:35 98.2 F 51 16 164/73 94 03/17/18 23:35 97.8 F 51 16 157/67 95 03/17/18 20:00 97.1 F L 55 14 130/63 98 03/17/18 14:21 98.2 F 46 16 138/87 96 Intake and Output 03/17/18 03/18/18 03/18/18 23:59 07:59 15:59 Intake Total 320 / 320 100 / 100 480 / 480 Output Total 270 / 270 40 / 40 600 / 600 Balance 50 / 50 60 / 60 -120 / -120 Intake: IV Fluids 200 / 200 100 / 100 Ofirmev 1,000 mg/100 ml 1,000 100 / 100 mg In 100 ml @ 400 mls/hr IVPB Q8HR [facility] Rx#:[id number] Zosyn 3.375 GM In 0.9 % Sodium 100 / 100 100 / 100 Chloride (Mini-Bag +) 100 ML @ 25 mls/hr IVPB Q8HR [facility] Rx#: [id number] Oral 120 / 120 480 / 480 Output: Urine 200 / 200 0 / 0 550 / 550 Wound Drainage 70 / 70 40 / 40 50 / 50 Right Lower Abdomen 70 / 70 40 / 40 50 / 50 Other: Meal Dinner Breakfast Percent of Meal Consumed 70% # Bowel Movements 0 Weight 105.9 kg Blood Glucose* 198 191 214 Patient Weight 03/18/18 23:59 Weight 105.9 kg VITAL SIGNS: Reviewed. See [facility] GENERAL: In no apparent distress. HEENT: Normocephalic, atraumatic, pupils are equal and reactive, extraocular motions intact, oropharynx is pink and moist, there is no neck adenopathy or JVD noted. CHEST/RESPIRATORY: The thorax is free from signs of trauma. Lung sounds: clear to auscultation, normal respiratory effort CARDIAC: Regular rate and rhythm. Normal S1 and S2, without murmurs, gallops, or rubs. VASCULAR: No Edema. 2+ peripheral pulses. ABDOMEN: soft, expected postoperative tenderness, active bowel sounds INCISION: Surgical incision is clean, dry, and intact with the exception of the packed area in the inferior portion. Serous drainage. There are no signs of cellulitis or infection noted. MUSCULOSKELETAL: Good range of motion of all major joints. Extremities without clubbing, cyanosis or edema. NEUROLOGIC EXAM: Alert and oriented x 3. Speech normal. Follows commands. PSYCHIATRIC: Mood normal. SKIN: No rash or lesions. - Hospital Course Hospital course: Ms. Hernández is a 73 year old female who presented on 03/15/2018 with complaints of right lower quadrant abdominal pain, fever, and night sweats for one day. A CT of the abdomen and pelvis was completed at an outside facility and showed acute appendicitis inflammatory changes around appendix without perforation. There was a nodular density noted and [facility] was therefore asked to review CT. Per [facility] could not exclude the possibility of perforation. She was taken to the operating room on 03/15/2018 where she underwent laparoscopic converted to open appendectomy and placement of a 19 Divehi Shaun drain. Physical therapy evaluated the patient and noted that she was safe to discharge home without further care. Patient states she will be going home to her sister's house and her niece will assist with her care. She is ambulating and voiding without difficulty, tolerating a diabetic diet without nausea or vomiting, afebrile and her vital signs are stable. We will begin discharge planning to home with a follow-up in the office in one week. She will be discharged with the EVELIA drain in place and packing will be discontinued. - Time Spent with Patient Total time spent providing and/or coordinating discharge services: - Discharge Medications Prescriptions: Amoxicillin/Clavulanate [Augmentin] 875 mg PO BIDWM #14 tablet HYDROcodone/Acet 5/325 mg [[place] 5-325 mg] 1 tab PO Q6H PRN 7 Days #28 tab PRN Reason: Pain Polyethylene Glycol 3350 [MiraLAX] 17 gm PO DAILY #30 powd.pack Simethicone [Gas-X] 80 mg PO TID #90 tab.chew Home Medications: Insulin Glargine,Hum.rec.anlog [Basaglar Kwikpen U-100] 30 unit SQ DAILY [History] Amoxicillin/Clavulanate [Augmentin] 875 mg PO BIDWM #14 tablet 03/18/18 [Rx] Docusate Sodium [Colace] 100 mg PO BID PRN #30 capsule 03/18/18 [Rx] HYDROcodone/Acet 5/325 mg [[place] 5-325 mg] 1 tab PO Q6H PRN 7 Days #28 tab 03/18 [Rx] Polyethylene Glycol 3350 [MiraLAX] 17 gm PO DAILY #30 powd.pack 03/18/18 [Rx] Simethicone [Gas-X] 80 mg PO TID #90 tab.chew 03/18/18 [Rx] Allergies/Adverse Reactions: 3 Allergy/AdvReac Type Severity Reaction Status Date / Time aspirin AdvReac Vomiting Verified 03/15/18 09:06 ibuprofen [From Motrin] AdvReac Vomiting Verified 03/15/18 09:06 Date of admission: 03/15/18 00:57 Primary care physician: PCP NONE Consults: 03/16/18 10:29 Consult to Physical Therapy [CONS] Routine Comment: Evaluate, develop and implement POC Reason for Consult: eval and implement point of care Does patient have active BEDREST order?: No Is patient medically & hemodynamically stable?: Yes Patient assessed for mobility or mobilized this visit?: Yes Discharging clinician: Jeannine Nolan Anticipated date of discharge: 03/18/18 Labs on day of discharge: Labs from last 24 hours 03/18/18 03/17/18 03/17/18 07:52 19:59 16:17 POC Glucose 191 H 198 H 221 H 03/17/18 03/17/18 12:53 07:45 POC Glucose 204 H 225 H - Impressions ITS Impressions Outside Radiology Exam: Second Opinion 03/15/18 00:00 IMPRESSION: 1. Findings consistent with acute appendicitis. There is a 2.4 cm macrolobular mass associated with the mid to distal appendix which could represent an inflammatory intramural abscess, underlying neoplasm such as mucinous adenoma cannot be excluded. There was no free air to suggest perforation. 2. No bowel obstruction. 3. Indeterminate sclerotic foci along the right aspect of the L3 vertebral body. There are no comparison studies available to determine stability. Blastic metastatic disease cannot be excluded. If history of malignancy evaluation with whole-body bone scintigraphy could be used to evaluate for possible multifocal lesions. 4. 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 Review of the exam regarding the acute appendicitis was discussed with the Clinical Service nurse practitioner Jeannine Nolan on 03/15/2018 at approximately 9:45 a.m. D/ / 03/15/2018 11:06:31 Ricky Esparza MD / Michelle Otero Interpreting Provider: Ricky Esparza MD - Patient Status Disposition: Home, Self-Care Condition: Good Functional capacity at discharge: independent ambulation Overall status at discharge: patient is progressing back to baseline - Discharge Instructions Instructions: Open Appendectomy (DC), Celestino-Fair Drain Care (DC) Follow Up With: Christelle Orlando CNP [Advanced Practice Nurse] - 03/24/18 9:30 am Travis Sanchez MD [Non-Partnered Physician] - Additional Instructions: General Surgical Discharge Instructions 1. No pushing, pulling, or lifting greater than 15 lbs for 2-4 weeks (depending upon procedure). 2. You may shower beginning today, but no tub baths, soaking, or swimming for 2 weeks. 3. You may resume driving when you are off narcotics and are safe to react in a car. 4. Take ibuprofen every 8 hours for discomfort. If this does not relieve discomfort, you may take the as needed [place]. Take narcotics as directed. Do not take more narcotics then directed and do not share your narcotics with any other person. Do not drink alcohol while on narcotics. DO NOT TAKE TRAMADOL OR OTHER NARCOTICS WHILE TAKING [place]. 5. Take stool softeners (Colace) everyday while taking narcotics. Take Miralax once or twice daily until you have bowel movements daily, then stop. You may hold for loose stools. 6. Report any fevers greater than 100.5F, increase abdominal discomfort, drainage that looks like pus, increased redness or pain at the surgical site, or any vomiting. 7. Report any pain in the calves, shortness of breath, or rapid heartbeat. 8. Follow-up in the office as directed. 9. If you were prescribed antibiotics, do not stop them without talking to your provider. Daily EVELIA Drain Care: 1. Remove dressings. Shower with antibacterial soap. 2. Do not let the EVELIA drain dangle from your body. Use the safety pin to secure to your clothing. Secure the EVELIA to a lanyard or other type of long necklace when you shower. 3. Replace drain gauze and taped to secure. 4. Record the output from your EVELIA bulb (at least once daily) on the form provided and bring this with you to your follow-up appointment. 5. Keep the EVELIA drain to suction (sqeeze the bulb and replace the cap while squeezing). 6. Strip the lines twice daily (hold onto the line as close to the body as you can, then with the other hand push the contents of the line into the EVELIA bulb). - Diet and Activity Activity: increase activity as tolerated Diet: diabetic diet
== END 2018-03-18 15:10 | disposition home or self-care (01) | DRG 340 ==
LOC: 3ANU
PROVIDERS: ADMIT Surgery; ATTEND Surgery

== ENCOUNTER 2020-01-21 15:13 | Observation (INO) ==
[2020-01-21 15:55] LABS: Basophils % 0.4 %; Eosinophils # 0.1 K/mcL (0.0-0.6); Eosinophils % 0.4 %; Hematocrit 45.2 % (35.3-44.9); Hemoglobin 14.2 g/dL (11.5-15.4); Immature Granulocytes % 0.4 % (0-4); Lymphocytes # 2.3 K/mcL (0.6-4.6); Lymphocytes % 20.2 %; Mean Corpuscular HGB Conc 31.4 g/dL (31.6-35.5); Mean Corpuscular Hemoglobin 28.1 pg (28.0-33.3); Mean Corpuscular Volume 89.3 fL (83.0-100.0); Mean Platelet Volume 11.2 fL (9.4-12.4); Monocytes # 0.6 K/mcL (0.0-1.3); Monocytes % 5.6 %; Neutrophils # 8.2 K/mcL (1.6-8.9); Platelet Count 212 K/mcL (140-400); Red Blood Count 5.06 M/mcL (3.82-4.97); Red Cell Distribution Width 15.4 % (11.5-14.5); White Blood Count 11.2 K/mcL (4.3-11.1)
[2020-01-21 16:00] LABS: INR 1.1; Prothrombin Time 12.6 Seconds (9.4-12.1)
[2020-01-21 16:02] LABS: Activated Partial Thrombo Time 41.1 Seconds (26.0-36.0)
[2020-01-21 16:19] LABS: Alanine Aminotransferase 6 Units/L (7-52); Albumin 3.9 g/dL (3.5-5.7); Albumin/Globulin Ratio 1.3 (1.1-2.2); Alkaline Phosphatase 81 Units/L (34-104); Aspartate Amino Transferase 9 Units/L (13-39); BUN/Creatinine Ratio 19 (6-26); Bilirubin,Direct 0.1 mg/dL (0.0-0.2); Bilirubin,Indirect 0.5 mg/dL (0.0-1.0); Bilirubin,Total 0.6 mg/dL (0.3-1.0); Blood Urea Nitrogen 15 mg/dL (8-23); Carbon Dioxide 24 mEq/L (23-29); Chloride 104 mEq/L (98-107); Glucose 86 mg/dL (70-105); Lipase < 3 Units/L (11-82); Osmolality,Calculated 288 (280-300); Potassium 4.3 mEq/L (3.5-5.1); Sodium 139 mEq/L (136-145); Total Protein 6.9 g/dL (6.4-8.9); Troponin I < 0.03 ng/mL (< 0.04); eGFR For African Americans > 60 (> 60); eGFR For Non-African Americans > 60 (> 60)
[2020-01-21] MEDS: 0.9 % Sodium Chloride 1,000 ML IVC SCH (16:22)
[2020-01-21] MEDS ORDERED: *HR* FentaNYL (PF) 100 MCG/2 ML VIAL IVP ONE (16:35)
[2020-01-21] MEDS ORDERED: Ondansetron 4 MG/2 ML VIAL IVP PRN (17:04)
[2020-01-21] MEDS ORDERED: Naloxone 0.4 MG/ML INJ IVP PRN (17:04)
[2020-01-21] MEDS ORDERED: Ketorolac 15 MG/ML VIAL IVP PRN (17:05)
[2020-01-21] MEDS ORDERED: *HR* Dextrose 50 % in Water (Syg) 50 ML SYRINGE IVP PRN (17:06)
[2020-01-21] MEDS ORDERED: Dextrose Gel 15 GM/37.5 ML TUBE PO PRN ×2 (17:06)
[2020-01-21] MEDS ORDERED: D5% in Water 1,000 ML IVC PRN (17:06)
[2020-01-21] MEDS ORDERED: *HR* HYDROmorphone (PF) 1 MG/ML SYRINGE IVP PRN (17:08)
[2020-01-21] MEDS ORDERED: *HR* HYDROmorphone PF 0.5 MG/0.5 ML SYRINGE IVP PRN (17:15)
[2020-01-21] MEDS: Insulin LISPRO 300 UNITS/3 ML VIAL SQ SCH ×2 (18:33→23:43)
[2020-01-22] MEDS: 0.9 % Sodium Chloride 1,000 ML IVC SCH (01:19)
[2020-01-22] MEDS ORDERED: *HR* Enoxaparin 40 MG/0.4 ML SYRINGE SQ SCH (06:00)
[2020-01-22] MEDS: Insulin LISPRO 300 UNITS/3 ML VIAL SQ SCH ×2 (06:06→11:40)
[2020-01-22] MEDS ORDERED: Lidocaine -MPF 4% 5 ML AMPUL ONE (08:48)
[2020-01-22] MEDS ORDERED: Lidocaine -MPF 2% 2 ML VIAL ONE (08:50)
[2020-01-22] MEDS ORDERED: *HR* Succinylcholine 200 MG/10 ML VIAL IVP ONE (08:50)
[2020-01-22] MEDS ORDERED: *HR* Rocuronium Bromide 50 MG/5 ML VIAL ONE (08:50)
[2020-01-22] MEDS ORDERED: *HR* FentaNYL (PF) 100 MCG/2 ML VIAL ONE (09:03)
[2020-01-22 11:23] VITALS: BP 146/71
[2020-01-22] MEDS ORDERED: Isovue-370 500 ML BOTTLE PO ONE (12:00)
== END 2020-01-22 14:15 | disposition home or self-care (01) ==
LOC: 3BNU 15:13 → EMEROOARM 15:13 → SUATTDRO 17:09 → 3BNU 17:28
PROVIDERS: ADMIT Internal Medicine; ATTEND Internal Medicine
PROC: ENDOEBX (2020-01-22 13:45)

== ENCOUNTER 2022-01-30 12:20 | Inpatient (IN) ==
[2022-01-30] MEDS ORDERED: Isovue-370 500 ML BOTTLE IVP ONE (12:29)
[2022-01-30 12:42] LABS: Hematocrit 35.4 % (35.3-44.9); Hemoglobin 12.3 g/dL (11.5-15.4); Mean Corpuscular HGB Conc 34.7 g/dL (31.6-35.5); Mean Corpuscular Hemoglobin 40.1 pg (28.0-33.3); Mean Corpuscular Volume 115.3 fL (83.0-100.0); Mean Platelet Volume 11.8 fL (9.4-12.4); Platelet Count 186 K/mcL (140-400); Red Blood Count 3.07 M/mcL (3.82-4.97); Red Cell Distribution Width 14.9 % (11.5-14.5); White Blood Count 9.1 K/mcL (4.3-11.1)
[2022-01-30 12:53] LABS: INR 1.1; Prothrombin Time 12.6 Seconds (9.4-12.1)
[2022-01-30 13:00] LABS: BUN/Creatinine Ratio 16 (6-26); Blood Urea Nitrogen 14 mg/dL (8-23); Calcium 8.7 mg/dL (8.6-10.3); Carbon Dioxide 30 mEq/L (23-29); Chloride 102 mEq/L (98-107); Glucose 173 mg/dL (70-105); Osmolality,Calculated 289 (280-300); Potassium 4.5 mEq/L (3.5-5.1); Sodium 137 mEq/L (136-145); eGFR For African Americans > 60 (> 60); eGFR For Non-African Americans > 60 (> 60)
[2022-01-30 13:01] LABS: Troponin I < 0.03 ng/mL (< 0.04)
[2022-01-30] MEDS ORDERED: Perflutren Lipid Microsphere 1.3 ML in 0.9 % Sodium Chloride 8.7 ML IVP PRN (13:42)
[2022-01-30] MEDS ORDERED: *HR* Dextrose 50 % in Water (Syg) 50 ML SYRINGE IVP PRN (13:43)
[2022-01-30] MEDS ORDERED: D5% in Water 1,000 ML IVC PRN (13:43)
[2022-01-30] MEDS ORDERED: Dextrose Gel 15 GM/37.5 ML TUBE PO PRN ×2 (13:43)
[2022-01-30] MEDS: *HR* HYDROcodone/Acet 5/325 mg TABLET PO PRN (15:13)
[2022-01-30] MEDS: Insulin LISPRO 300 UNITS/3 ML VIAL SUBQ SCH (18:52)
[2022-01-31 05:29] LABS: Hematocrit 31.7 % (35.3-44.9); Mean Corpuscular HGB Conc 33.8 g/dL (31.6-35.5); Mean Corpuscular Hemoglobin 37.7 pg (28.0-33.3); Mean Corpuscular Volume 111.6 fL (83.0-100.0); Mean Platelet Volume 12.1 fL (9.4-12.4); Platelet Count 170 K/mcL (140-400); Red Blood Count 2.84 M/mcL (3.82-4.97); Red Cell Distribution Width 14.6 % (11.5-14.5); White Blood Count 7.8 K/mcL (4.3-11.1)
[2022-01-31 05:32] LABS: Hemoglobin 10.7 g/dL (11.5-15.4)
[2022-01-31 05:35] LABS: INR 1.1; Prothrombin Time 12.6 Seconds (9.4-12.1)
[2022-01-31 05:38] LABS: Estimated Average Glucose 123 mg/dl; Hemoglobin A1C 5.9 %
[2022-01-31 05:58] LABS: Alanine Aminotransferase 4 Units/L (7-52); Albumin 3.2 g/dL (3.5-5.7); Albumin/Globulin Ratio 1.3 (1.1-2.2); Alkaline Phosphatase 93 Units/L (34-104); Aspartate Amino Transferase 9 Units/L (13-39); BUN/Creatinine Ratio 16 (6-26); Bilirubin,Total 0.6 mg/dL (0.3-1.0); Blood Urea Nitrogen 12 mg/dL (8-23); Calcium 8.3 mg/dL (8.6-10.3); Carbon Dioxide 26 mEq/L (23-29); Chloride 102 mEq/L (98-107); Chol/HDL Ratio 3.5 (0-4.9); Cholesterol 121 mg/dL (< 200); Globulin 2.4 g/dL (2.4-3.5); Glucose 130 mg/dL (70-105); HDL Cholesterol 35 mg/dL (40-59); LDL Cholesterol,Calculated 62 mg/dL (< 100); Osmolality,Calculated 280 (280-300); Potassium 4.1 mEq/L (3.5-5.1); Sodium 134 mEq/L (136-145); Total Protein 5.6 g/dL (6.4-8.9); Triglycerides 118 mg/dL (< 150); Troponin I < 0.03 ng/mL (< 0.04); eGFR For African Americans > 60 (> 60); eGFR For Non-African Americans > 60 (> 60)
[2022-01-31] MEDS: Insulin LISPRO 300 UNITS/3 ML VIAL SUBQ SCH ×3 (08:25→17:31)
[2022-01-31] MEDS: *HR* HYDROcodone/Acet 5/325 mg TABLET PO PRN ×2 (08:29→17:49)
[2022-01-31] MEDS: Gabapentin 300 MG CAPSULE PO SCH ×2 (14:00→19:59)
[2022-01-31] MEDS ORDERED: Ondansetron 4 MG/2 ML VIAL IVP PRN (21:38)
[2022-02-01 01:47] LABS: Basophils % 0.4 %; Eosinophils # 0.1 K/mcL (0.0-0.6); Eosinophils % 0.7 %; Hematocrit 32.2 % (35.3-44.9); Hemoglobin 10.8 g/dL (11.5-15.4); Immature Granulocytes % 0.4 % (0-4); Lymphocytes # 4.3 K/mcL (0.6-4.6); Lymphocytes % 39.7 %; Mean Corpuscular HGB Conc 33.5 g/dL (31.6-35.5); Mean Corpuscular Hemoglobin 37.8 pg (28.0-33.3); Mean Corpuscular Volume 112.6 fL (83.0-100.0); Mean Platelet Volume 12.2 fL (9.4-12.4); Monocytes # 0.6 K/mcL (0.0-1.3); Monocytes % 5.8 %; Neutrophils # 5.8 K/mcL (1.6-8.9); Platelet Count 151 K/mcL (140-400); Red Blood Count 2.86 M/mcL (3.82-4.97); Red Cell Distribution Width 14.6 % (11.5-14.5); White Blood Count 10.9 K/mcL (4.3-11.1)
[2022-02-01 02:05] LABS: Bacteria,Urine Few per hpf (None-Few); Bilirubin,Urine Negative (Negative); Blood,Urine Negative (Negative); Calcium Oxalate Crystals,Urine Present per hpf; Clarity,Urine Turbid (Clear); Color,Urine Yellow (Yellow); Glucose,Urine (UA) Normal (Normal); Ketones,Urine Negative (Negative); Leukocyte Esterase,Urine Negative (Negative); Nitrite,Urine Positive (Negative); Protein,Urine Trace mg/dL (Neg-Trace); RBC,Urine 0-3 per hpf (0-3); Specific Gravity,Urine 1.026 (1.010-1.025); WBC,Urine 0-3 per hpf (0-3)
[2022-02-01 02:10] LABS: BUN/Creatinine Ratio 18 (6-26); Blood Urea Nitrogen 15 mg/dL (8-23); Calcium 8.3 mg/dL (8.6-10.3); Carbon Dioxide 26 mEq/L (23-29); Chloride 101 mEq/L (98-107); Glucose 98 mg/dL (70-105); Magnesium 1.8 mg/dL (1.6-2.6); Osmolality,Calculated 277 (280-300); Phosphorous 3.3 mg/dL (2.7-4.5); Potassium 4.2 mEq/L (3.5-5.1); Sodium 133 mEq/L (136-145); eGFR For African Americans > 60 (> 60); eGFR For Non-African Americans > 60 (> 60)
[2022-02-01 02:15] LABS: Macrocytosis Present (Not Present); Platelet Estimate Normal (Normal)
[2022-02-01] MEDS: *HR* Enoxaparin 40 MG/0.4 ML SYRINGE SQ SCH (06:30)
[2022-02-01] MEDS: *HR* HYDROcodone/Acet 5/325 mg TABLET PO PRN ×3 (06:30→20:16)
[2022-02-01] MEDS: Insulin LISPRO 300 UNITS/3 ML VIAL SUBQ SCH ×3 (07:31→16:47)
[2022-02-01] MEDS: Gabapentin 300 MG CAPSULE PO SCH ×3 (09:16→20:15)
[2022-02-02] MEDS: *HR* HYDROcodone/Acet 5/325 mg TABLET PO PRN ×2 (03:13→20:50)
[2022-02-02] MEDS: *HR* Enoxaparin 40 MG/0.4 ML SYRINGE SQ SCH (06:28)
[2022-02-02] MEDS: Insulin LISPRO 300 UNITS/3 ML VIAL SUBQ SCH ×3 (07:46→17:04)
[2022-02-02] MEDS: Gabapentin 300 MG CAPSULE PO SCH ×3 (07:46→20:50)
[2022-02-02] MEDS: Sennosides/Docusate Sodium TABLET PO PRN (15:45)
[2022-02-03 03:44] LABS: BUN/Creatinine Ratio 21 (6-26); Blood Urea Nitrogen 15 mg/dL (8-23); Calcium 8.5 mg/dL (8.6-10.3); Carbon Dioxide 26 mEq/L (23-29); Chloride 99 mEq/L (98-107); Glucose 138 mg/dL (70-105); Magnesium 1.8 mg/dL (1.6-2.6); Osmolality,Calculated 275 (280-300); Phosphorous 3.2 mg/dL (2.7-4.5); Potassium 4.4 mEq/L (3.5-5.1); Sodium 131 mEq/L (136-145); eGFR For African Americans > 60 (> 60); eGFR For Non-African Americans > 60 (> 60)
[2022-02-03] MEDS: *HR* Enoxaparin 40 MG/0.4 ML SYRINGE SQ SCH (04:58)
[2022-02-03] MEDS: Insulin LISPRO 300 UNITS/3 ML VIAL SUBQ SCH ×3 (08:17→17:06)
[2022-02-03] MEDS: *HR* HYDROcodone/Acet 5/325 mg TABLET PO PRN ×2 (08:35→17:04)
[2022-02-03] MEDS: Gabapentin 300 MG CAPSULE PO SCH ×3 (08:35→21:33)
[2022-02-04] MEDS: *HR* HYDROcodone/Acet 5/325 mg TABLET PO PRN ×4 (03:46→20:34)
[2022-02-04] MEDS: *HR* Enoxaparin 40 MG/0.4 ML SYRINGE SQ SCH (05:36)
[2022-02-04] MEDS: Gabapentin 300 MG CAPSULE PO SCH ×3 (07:28→20:11)
[2022-02-04] MEDS: Insulin LISPRO 300 UNITS/3 ML VIAL SUBQ SCH ×3 (07:28→17:12)
[2022-02-05] MEDS: *HR* HYDROcodone/Acet 5/325 mg TABLET PO PRN ×3 (04:51→22:51)
[2022-02-05] MEDS: *HR* Enoxaparin 40 MG/0.4 ML SYRINGE SQ SCH (04:51)
[2022-02-05] MEDS: Gabapentin 300 MG CAPSULE PO SCH ×3 (08:37→22:52)
[2022-02-05] MEDS: Insulin LISPRO 300 UNITS/3 ML VIAL SUBQ SCH ×3 (08:37→16:16)
[2022-02-05] MEDS: Sennosides/Docusate Sodium TABLET PO PRN (16:14)
[2022-02-06] MEDS: *HR* Enoxaparin 40 MG/0.4 ML SYRINGE SQ SCH (06:31)
[2022-02-06] MEDS: Insulin LISPRO 300 UNITS/3 ML VIAL SUBQ SCH ×3 (07:36→15:03)
[2022-02-06] MEDS: Gabapentin 300 MG CAPSULE PO SCH ×4 (08:22→21:01)
[2022-02-06] MEDS: Sennosides/Docusate Sodium TABLET PO PRN (15:18)
[2022-02-06] MEDS: *HR* HYDROcodone/Acet 5/325 mg TABLET PO PRN (23:48)
[2022-02-07] MEDS: *HR* Enoxaparin 40 MG/0.4 ML SYRINGE SQ SCH (05:30)
[2022-02-07] MEDS: Insulin LISPRO 300 UNITS/3 ML VIAL SUBQ SCH ×3 (09:40→17:20)
[2022-02-07] MEDS: Gabapentin 300 MG CAPSULE PO SCH ×3 (09:44→21:02)
[2022-02-07] MEDS: Sennosides/Docusate Sodium TABLET PO PRN (12:41)
[2022-02-07] MEDS: polyethylene glycoL 3350 17 GM POWD.PACK PO SCH (12:41)
[2022-02-07] MEDS: *HR* HYDROcodone/Acet 5/325 mg TABLET PO PRN ×2 (16:11→21:03)
[2022-02-08] MEDS: *HR* Enoxaparin 40 MG/0.4 ML SYRINGE SQ SCH (06:16)
[2022-02-08] MEDS: Insulin LISPRO 300 UNITS/3 ML VIAL SUBQ SCH ×3 (09:35→17:00)
[2022-02-08] MEDS: polyethylene glycoL 3350 17 GM POWD.PACK PO SCH (09:36)
[2022-02-08] MEDS: Gabapentin 300 MG CAPSULE PO SCH ×3 (09:36→21:33)
[2022-02-08] MEDS: Sennosides/Docusate Sodium TABLET PO PRN ×2 (09:37→21:33)
[2022-02-08] MEDS: lisinopriL 5 MG TABLET PO SCH (09:42)
[2022-02-08 14:03] LABS: Hematocrit 32.5 % (35.3-44.9); Hemoglobin 11.1 g/dL (11.5-15.4); Mean Corpuscular HGB Conc 34.2 g/dL (31.6-35.5); Mean Corpuscular Hemoglobin 38.4 pg (28.0-33.3); Mean Corpuscular Volume 112.5 fL (83.0-100.0); Mean Platelet Volume 11.9 fL (9.4-12.4); Platelet Count 173 K/mcL (140-400); Red Blood Count 2.89 M/mcL (3.82-4.97); Red Cell Distribution Width 14.6 % (11.5-14.5)
[2022-02-08 14:25] LABS: % Iron Saturation 8 % (15-50); BUN/Creatinine Ratio 19 (6-26); Blood Urea Nitrogen 14 mg/dL (8-23); Carbon Dioxide 28 mEq/L (23-29); Chloride 99 mEq/L (98-107); Glucose 170 mg/dL (70-105); Iron 22 mcg/dL (50-170); Osmolality,Calculated 282 (280-300); Potassium 4.6 mEq/L (3.5-5.1); Sodium 134 mEq/L (136-145); Transferrin 196 mg/dL (203-362); eGFR For African Americans > 60 (> 60); eGFR For Non-African Americans > 60 (> 60)
[2022-02-08 14:43] LABS: Ferritin 152 ng/mL (10-120)
[2022-02-08 14:48] LABS: Folate 6.8 ng/mL (3.0-16.0)
[2022-02-08] MEDS: *HR* HYDROcodone/Acet 5/325 mg TABLET PO PRN ×2 (15:20→21:32)
[2022-02-08] MEDS ORDERED: Iron Sucrose Complex 400 MG in 0.9 % Sodium Chloride 250 ML IVPB ONE (20:45)
[2022-02-09] MEDS: *HR* Enoxaparin 40 MG/0.4 ML SYRINGE SQ SCH (06:05)
[2022-02-09] MEDS: Insulin LISPRO 300 UNITS/3 ML VIAL SUBQ SCH ×3 (06:52→15:47)
[2022-02-09] MEDS: Cholecalciferol (D-3) 1,000 UNIT (25MCG) TABLET PO SCH (09:42)
[2022-02-09] MEDS: polyethylene glycoL 3350 17 GM POWD.PACK PO SCH (09:42)
[2022-02-09] MEDS: Multivit/Ca/Min/Fe/FA 1 TAB TABLET PO SCH (09:42)
[2022-02-09] MEDS: lisinopriL 5 MG TABLET PO SCH (09:42)
[2022-02-09] MEDS: Gabapentin 300 MG CAPSULE PO SCH ×3 (09:42→20:28)
[2022-02-09] MEDS: Cyanocobalamin (B-12) 1,000 MCG TABLET PO SCH (09:43)
[2022-02-10] MEDS: *HR* Enoxaparin 40 MG/0.4 ML SYRINGE SQ SCH (05:37)
[2022-02-10] MEDS: Insulin LISPRO 300 UNITS/3 ML VIAL SUBQ SCH ×3 (07:08→16:49)
[2022-02-10] MEDS: Cholecalciferol (D-3) 1,000 UNIT (25MCG) TABLET PO SCH (09:14)
[2022-02-10] MEDS: lisinopriL 5 MG TABLET PO SCH (09:14)
[2022-02-10] MEDS: Multivit/Ca/Min/Fe/FA 1 TAB TABLET PO SCH (09:14)
[2022-02-10] MEDS: Cyanocobalamin (B-12) 1,000 MCG TABLET PO SCH (09:14)
[2022-02-10] MEDS: polyethylene glycoL 3350 17 GM POWD.PACK PO SCH (09:14)
[2022-02-10] MEDS: Gabapentin 300 MG CAPSULE PO SCH ×3 (09:14→19:59)
[2022-02-10] MEDS ORDERED: *HR* OxyCODONE/APAP 5/325 TABLET PO PRN (14:17)
[2022-02-10] MEDS: *HR* HYDROcodone/Acet 5/325 mg TABLET PO PRN (19:59)
[2022-02-11 03:28] LABS: Basophils % 0.5 %; Eosinophils # 0.2 K/mcL (0.0-0.6); Eosinophils % 2.2 %; Hematocrit 30.9 % (35.3-44.9); Hemoglobin 10.4 g/dL (11.5-15.4); Immature Granulocytes % 0.6 % (0-4); Lymphocytes # 3.5 K/mcL (0.6-4.6); Mean Corpuscular HGB Conc 33.7 g/dL (31.6-35.5); Mean Corpuscular Hemoglobin 37.5 pg (28.0-33.3); Mean Corpuscular Volume 111.6 fL (83.0-100.0); Monocytes # 0.4 K/mcL (0.0-1.3); Monocytes % 5.2 %; Neutrophils # 4.1 K/mcL (1.6-8.9); Platelet Count 164 K/mcL (140-400); Red Blood Count 2.77 M/mcL (3.82-4.97); Red Cell Distribution Width 14.1 % (11.5-14.5); Segmented Neutrophils % 49.5 %; White Blood Count 8.3 K/mcL (4.3-11.1)
[2022-02-11 03:52] LABS: BUN/Creatinine Ratio 20 (6-26); Blood Urea Nitrogen 15 mg/dL (8-23); Calcium 8.8 mg/dL (8.6-10.3); Carbon Dioxide 30 mEq/L (23-29); Chloride 100 mEq/L (98-107); Glucose 112 mg/dL (70-105); Magnesium 1.8 mg/dL (1.6-2.6); Osmolality,Calculated 280 (280-300); Phosphorous 3.7 mg/dL (2.7-4.5); Potassium 3.9 mEq/L (3.5-5.1); Sodium 134 mEq/L (136-145); eGFR For African Americans > 60 (> 60); eGFR For Non-African Americans > 60 (> 60)
[2022-02-11 04:26] LABS: Macrocytosis Present (Not Present); Platelet Estimate Normal (Normal)
[2022-02-11] MEDS: *HR* Enoxaparin 40 MG/0.4 ML SYRINGE SQ SCH (06:25)
[2022-02-11] MEDS: Multivit/Ca/Min/Fe/FA 1 TAB TABLET PO SCH (09:48)
[2022-02-11] MEDS: polyethylene glycoL 3350 17 GM POWD.PACK PO SCH (09:48)
[2022-02-11] MEDS: lisinopriL 5 MG TABLET PO SCH (09:48)
[2022-02-11] MEDS: Cholecalciferol (D-3) 1,000 UNIT (25MCG) TABLET PO SCH (09:48)
[2022-02-11] MEDS: Gabapentin 300 MG CAPSULE PO SCH ×3 (09:48→23:02)
[2022-02-11] MEDS: Cyanocobalamin (B-12) 1,000 MCG TABLET PO SCH (09:48)
[2022-02-11] MEDS: Insulin LISPRO 300 UNITS/3 ML VIAL SUBQ SCH ×3 (09:51→18:19)
[2022-02-11] MEDS: *HR* HYDROcodone/Acet 5/325 mg TABLET PO PRN (23:02)
[2022-02-11] MEDS: Melatonin 3 MG TABLET PO SCH (23:02)
[2022-02-12] MEDS: *HR* Enoxaparin 40 MG/0.4 ML SYRINGE SQ SCH (06:11)
[2022-02-12] MEDS: Insulin LISPRO 300 UNITS/3 ML VIAL SUBQ SCH ×3 (11:01→17:24)
[2022-02-12] MEDS: Cholecalciferol (D-3) 1,000 UNIT (25MCG) TABLET PO SCH (11:01)
[2022-02-12] MEDS: polyethylene glycoL 3350 17 GM POWD.PACK PO SCH (11:02)
[2022-02-12] MEDS: Multivit/Ca/Min/Fe/FA 1 TAB TABLET PO SCH (11:02)
[2022-02-12] MEDS: Cyanocobalamin (B-12) 1,000 MCG TABLET PO SCH (11:02)
[2022-02-12] MEDS: lisinopriL 5 MG TABLET PO SCH (11:02)
[2022-02-12] MEDS: Gabapentin 300 MG CAPSULE PO SCH ×3 (11:03→19:42)
[2022-02-12] MEDS: Melatonin 3 MG TABLET PO SCH (19:42)
[2022-02-13] MEDS ORDERED: 0.9 % Sodium Chloride 1,000 ML IVC ONE (04:54)
[2022-02-13] MEDS: *HR* Enoxaparin 40 MG/0.4 ML SYRINGE SQ SCH (05:03)
[2022-02-13 05:09] LABS: Basophils # 0.1 K/mcL (0.0-0.2); Basophils % 0.6 %; Eosinophils # 0.2 K/mcL (0.0-0.6); Eosinophils % 2.4 %; Hematocrit 31.2 % (35.3-44.9); Hemoglobin 10.7 g/dL (11.5-15.4); Immature Granulocytes % 0.9 % (0-4); Lymphocytes # 3.2 K/mcL (0.6-4.6); Lymphocytes % 36.3 %; Mean Corpuscular HGB Conc 34.3 g/dL (31.6-35.5); Mean Corpuscular Hemoglobin 37.4 pg (28.0-33.3); Mean Corpuscular Volume 109.1 fL (83.0-100.0); Mean Platelet Volume 11.7 fL (9.4-12.4); Monocytes # 0.6 K/mcL (0.0-1.3); Monocytes % 6.3 %; Neutrophils # 4.7 K/mcL (1.6-8.9); Platelet Count 164 K/mcL (140-400); Red Blood Count 2.86 M/mcL (3.82-4.97); Red Cell Distribution Width 14.2 % (11.5-14.5); Segmented Neutrophils % 53.5 %; White Blood Count 8.9 K/mcL (4.3-11.1)
[2022-02-13 05:27] LABS: BUN/Creatinine Ratio 20 (6-26); Blood Urea Nitrogen 14 mg/dL (8-23); Carbon Dioxide 28 mEq/L (23-29); Chloride 100 mEq/L (98-107); Glucose 130 mg/dL (70-105); Magnesium 1.9 mg/dL (1.6-2.6); Osmolality,Calculated 280 (280-300); Phosphorous 3.8 mg/dL (2.7-4.5); Potassium 4.2 mEq/L (3.5-5.1); Sodium 134 mEq/L (136-145); eGFR For African Americans > 60 (> 60); eGFR For Non-African Americans > 60 (> 60)
[2022-02-13] MEDS: Insulin LISPRO 300 UNITS/3 ML VIAL SUBQ SCH ×3 (08:35→16:41)
[2022-02-13] MEDS: Multivit/Ca/Min/Fe/FA 1 TAB TABLET PO SCH (08:42)
[2022-02-13] MEDS: Gabapentin 300 MG CAPSULE PO SCH ×2 (08:42→16:43)
[2022-02-13] MEDS: Cholecalciferol (D-3) 1,000 UNIT (25MCG) TABLET PO SCH (08:42)
[2022-02-13] MEDS: polyethylene glycoL 3350 17 GM POWD.PACK PO SCH (08:42)
[2022-02-13] MEDS: Cyanocobalamin (B-12) 1,000 MCG TABLET PO SCH (08:42)
[2022-02-13] MEDS: lisinopriL 5 MG TABLET PO SCH (08:42)
[2022-02-13 15:51] VITALS: BP 111/46; PULSE 47; TEMP 97.9; O2SAT 96
== END 2022-02-13 21:00 | DRG 65 ==
LOC: 2NENU 12:20 → EMEROOARM 12:20 → SUATTDRO 16:52 → 2NENU 18:09 → SUATTDRO 18:48
PROVIDERS: ADMIT Internal Medicine; ATTEND Internal Medicine